=== PATIENT | male | born 1975 | race Caucasian/White ===

== ENCOUNTER → 2018-10-06 | Outpatient (CLI) | payer BC ==
--- NOTE | 2018-10-06 21:01 | RADIOLOGY IMAGING REPORT ---
FACILITY: [facility] PATIENT NAME: Conrad Cruz : 1975 MR: [id number] V: [id number] EXAM DATE: ORDERING PHYSICIAN: LETITIA DESHPANDE TECHNOLOGIST: Location: [facility] Patient: Conrad Cruz : 1975 Visit/Account:[id number] Date of Sevice: 10/06/2018 SCROTAL ULTRASOUND INDICATION: Testicular pain. COMPARISON: None available. FINDINGS: Right testicle measures 4.1 x 2.2 x 3.0 cm in cc, AP, and transverse dimensions respectively. There is normal arterial and venous blood flow. There is a small hydrocele. No varicocele identified. The right epididymal head measures 1.1 cm. There is increased color flow within the right epididymis and the right testicle. Left testicle measures 3.7 x 2.4 x 3.0 cm in cc, AP, and transverse dimensions respectively. There is normal arterial and venous blood flow. No evidence of hydrocele. A varicocele is seen. The left epididymal head is abnormally enlarged and is heterogeneous in appearance. There is marked increased color flow throughout the epididymis and the left testicle. Subtle area of hypoechogenicity is seen within the left testicle with scattered punctate microcalcifi cations. This could reflect a developing phlegmon given the epididymitis and orchitis findings. Unde rlying mass cannot be excluded. Close ultrasound follow-up is recommended. IMPRESSION: 1. Ultrasound findings compatible with a left-sided epididymoorchitis. The left epididymis is marke dly enlarged and heterogeneous with increased color flow. 2. Less pronounced right-sided epididymoorchitis. 3. Subtle area of hypoechogenicity within the left testicle which does not demonstrate increased col or flow. This may reflect a testicular phlegmon given the epididymoorchitis findings. Follow-up ult rasound in 6 weeks is recommended to confirm resolution. Testicular mass cannot be completely exclud ed at this time. Results were discussed with LETITIA DESHPANDE at 10/06/2018 8:52 PM. Report Dictated By: Prasanna Mohan at 10/06/2018 8:43 PM Report E-Signed By: Prasanna Mohan at 10/06/2018 8:53 PM WSN:[id number]
== END ==
LOC: US 19:36
PROVIDERS: ATTEND Nurse Practitioner Family
DX: N45.3 Epididymo-orchitis (principal)
CPT/HCPCS: 76870

== ENCOUNTER → 2018-10-06 | Outpatient (REF) | payer BC ==
[2018-10-06 19:19] LABS: PLATELET COUNT, AUTOMATED 269 K/uL (150-450)
== END ==
PROVIDERS: ATTEND Nurse Practitioner Family
DX: R10.9 Unspecified abdominal pain (principal)
CPT/HCPCS: 82040; 82247; 82310; 82374; 82435; 82565; 82947; 84075; 84132; 84155; 84295; 84450; 84460; 84520; 85025